=== PATIENT | male | born 1950 | race Caucasian/White ===

== ENCOUNTER 2017-05-04 20:59 | Emergency (ER) | payer MEDICARE ==
[~2017-05-04] VITALS: Ht 177.8 cm; Wt 59.0 kg
--- NOTE | 2017-05-04 21:15 | NUR ---
PT AMBULATORY TO ER BED 09. C/O MIDSTERNAL CHEST PAIN WORST UPON DEEP BREATHING. PT WAS SEEN AT [facility]. PT DENIES CHEST PAIN METALIZER. GOWNED AND PLACED ON MONITOR. NAD NOTED. AWAITING MD AUGUSTIN.
--- NOTE | 2017-05-04 21:51 | NUR ---
RADIOLOGY AT BEDSIDE FOR CHEST XRAY.
[2017-05-04 22:03] LABS: BASOPHILS % (AUTO) 0.1 % (0.0-2.0); EOSINOPHILS % (AUTO) 0.5 % (0.0-6.0); HEMATOCRIT 40 % (39-51); HEMOGLOBIN 13.4 g/dL (13.5-17.5); LYMPHOCYTES # (AUTO) 0.6 /CMM (0.8-4.8); LYMPHOCYTES % (AUTO) 6.4 % (20.0-44.0); MEAN CORPUSCULAR HEMOGLOBIN 33 PG (26.0-33.0); MEAN CORPUSCULAR HGB CONC 33 g/dl (31.0-36.0); MEAN CORPUSCULAR VOLUME 99 fL (80-96); MONOCYTES # (AUTO) 0.3 /CMM (0.1-1.30); MONOCYTES % (AUTO) 3.3 % (2.0-12.0); NEUTROPHILS # (AUTO) 8.4 /CMM (1.8-8.9); NEUTROPHILS % (AUTO) 89.7 % (43.0-81.0); PLATELET COUNT (AUTO) 165 /CMM (150-450); RDW COEFFICIENT OF VARIATION 13.4 (11.5-15.0); RED BLOOD CELL COUNT(AUTO) 4.11 MIL/uL (4.5-6.0); WHITE BLOOD COUNT (AUTO) 9.4 K/uL (4.3-11.0)
[2017-05-04 22:08] LABS: CALCIUM, SERUM 9.1 mg/dL (8.5-10.1); CARBON DIOXIDE 37 mmol/L (21-32); CHLORIDE 101 mmol/L (98-107); CREATININE 0.8 mg/dL (0.6-1.3); GLUCOSE 81 mg/dL (74-106); POTASSIUM 4.1 mmol/L (3.5-5.1); PROTHROMBIN TIME 10.4 SECS (9.5-12.7); SODIUM SERUM 137 mmol/L (136-145); UREA NITROGEN, BLOOD 17 mg/dL (7-18)
[2017-05-04 22:14] LABS: ALANINE AMINOTRANSFERASE 73 U/L (12-78); ALBUMIN 3.7 g/dL (3.4-5.0); ALKALINE PHOSPHATASE 52 U/L (46-116); ASPARTATE AMINOTRANSFERASE 48 U/L (15-37); BILIRUBIN,DIRECT 0.2 mg/dL (0.0-0.2); BILIRUBIN,TOTAL 0.4 mg/dL (0.2-1.0); TOTAL PROTEIN, SERUM 7.8 g/dL (6.4-8.2)
[2017-05-04 22:16] LABS: TROPONIN I < 0.017 ng/mL (0.00-0.056)
--- NOTE | 2017-05-04 22:21 | NUR ---
PT TO RADIOLOGY FOR CT PULMONARY ANGIO VIA [facility].
--- NOTE | 2017-05-04 22:39 | NUR ---
WAITING FOR GOOD IV LINE FOR CTA PULMONARY.
--- NOTE | 2017-05-04 23:44 | NUR ---
PT TO RADIOLOGY FOR CT PULMONARY ANGIO VIA [facility].
--- NOTE | 2017-05-05 01:37 | NUR ---
Patient discharged to home in stable condition. Written and verbal after care instructions given. Patient verbalizes understanding of instruction.IV removed. Catheter intact and site benign. Pressure and 4x4 applied to site. No bleeding noted.
[2017-05-05 01:38] VITALS: BP 134/74
== END 2017-05-05 01:39 | disposition home or self-care (01) ==
LOC: ER 21:00
DX: R07.89 Other chest pain (principal); F17.210 Nicotine dependence, cigarettes, uncomplicated; I49.3 Ventricular premature depolarization
CPT/HCPCS: 36415; 71010-TC; 80048-TC; 80076-TC; 84484-TC; 85025-TC; 85730-TC; A4606; J7030; Q9967; Z7610

== ENCOUNTER 2017-08-16 23:05 | Emergency (ER) | payer MEDICARE ==
[~2017-08-16] VITALS: Ht 170.2 cm; Wt 70.3 kg
[2017-08-16 23:20] VITALS: BP 138/72
== END 2017-08-17 02:23 | disposition home or self-care (01) ==
LOC: ER 23:08
DX: S63.511A Sprain of carpal joint of right wrist, initial encounter (principal); F17.200 Nicotine dependence, unspecified, uncomplicated; W01.0XXA Fall on same level from slipping, tripping and stumbling without subsequent striking against object, initial encounter; Y93.89 Activity, other specified; Y92.89 Other specified places as the place of occurrence of the external cause; Y99.8 Other external cause status
CPT/HCPCS: 29125; 73110; 99284; A4606; Z7610

== ENCOUNTER 2023-03-26 10:17 | Inpatient (IN) | payer MEDICARE ==
[~2023-03-26] VITALS: Ht 170.2 cm; Wt 61.7 kg
[2023-03-26] MEDS ORDERED: METH10TA2 PO (11:49)
[2023-03-26] MEDS ORDERED: IV NS 0.9% 1,000 ML BAG IV ONE (12:00)
[2023-03-26 12:36] LABS: BASOPHILS % (AUTO) 0.2 % (0.0-2.0); EOSINOPHILS % (AUTO) 0.2 % (0.0-6.0); HEMATOCRIT 38 % (39-51); HEMOGLOBIN 12.9 g/dL (13.5-17.5); LYMPHOCYTES # (AUTO) 0.9 K/uL (0.8-4.8); LYMPHOCYTES % (AUTO) 5.5 % (20.0-44.0); MEAN CORPUSCULAR HEMOGLOBIN 32 PG (26.0-33.0); MEAN CORPUSCULAR HGB CONC 34 g/dl (31.0-36.0); MEAN CORPUSCULAR VOLUME 96 fL (80-96); MONOCYTES # (AUTO) 0.9 K/uL (0.1-1.30); MONOCYTES % (AUTO) 6.1 % (2.0-12.0); NEUTROPHILS # (AUTO) 13.8 K/uL (1.8-8.9); PLATELET COUNT (AUTO) 482 K/uL (150-450); RED CELL DISTRIBUTION WIDTH 13.2 % (11.5-15.0); WHITE BLOOD COUNT (AUTO) 15.6 K/uL (4.3-11.0)
[2023-03-26 13:04] LABS: CALCIUM, SERUM 9.4 mg/dL (8.5-10.1); CARBON DIOXIDE 29 mmol/L (21-32); CHLORIDE 105 mmol/L (98-107); CREATININE 1.2 mg/dL (0.6-1.3); GLUCOSE 82 mg/dL (74-106); POTASSIUM 3.2 mmol/L (3.5-5.1); SODIUM SERUM 141 mmol/L (136-145); UREA NITROGEN, BLOOD 47 mg/dL (7-18)
[2023-03-26 13:06] LABS: MAGNESIUM 2.3 mg/dL (1.8-2.4); PHOSPHORUS 3.4 mg/dL (2.5-4.9)
[2023-03-26 13:16] LABS: ALANINE AMINOTRANSFERASE 51 U/L (12-78); ALBUMIN 2.7 g/dL (3.4-5.0); ALKALINE PHOSPHATASE 48 U/L (46-116); ASPARTATE AMINOTRANSFERASE 56 U/L (15-37); BILIRUBIN,DIRECT 0.6 mg/dL (0.0-0.2); LIPASE 47 U/L (73-393); TOTAL PROTEIN, SERUM 7.3 g/dL (6.4-8.2)
[2023-03-26 13:40] LABS: LACTIC ACID 1.5 mmol/L (0.4-2.0)
[2023-03-26 13:48] LABS: ACETAMINOPHEN 0 ug/ml (10-30); ALCOHOL, BLOOD < 3 mg/dL (0-10); SALICYLATE 3.7 mg/dL (2.8-20.0)
[2023-03-26 14:13] LABS: APPEARANCE,URINE CLEAR (CLEAR); BILIRUBIN,URINE 2+ (NEGATIVE); BLOOD, URINE NEGATIVE Ery/uL (NEGATIVE); COLOR,URINE ORANGE (YELLOW); KETONES,URINE 2+ mg/dL (NEGATIVE); LEUKOCYTE ESTERASE ,URINE NEGATIVE (NEGATIVE); NITRITE, URINE NEGATIVE (NEGATIVE); PROTEIN,URINE 1+ mg/dl (NEGATIVE); UGLUCOSE NEGATIVE (NEGATIVE)
[2023-03-26 14:17] LABS: AMPHETAMINE, URINE NEGATIVE (NEGATIVE); BARBITURATE, URINE NEGATIVE (NEGATIVE); BENZODIAZEPINE, URINE POSITIVE (NEGATIVE); CANNABINOID, URINE NEGATIVE (NEGATIVE); COCCAINE, URINE NEGATIVE (NEGATIVE); OPIATE, URINE NEGATIVE (NEGATIVE); PHENCYCLIDINE SCREEN,URINE NEGATIVE (NEGATIVE)
[2023-03-26] MEDS ORDERED: AZITHROMYCIN 500 MG in IV D5W 250 ML IV ONE (14:30)
[2023-03-26] MEDS ORDERED: CEFTRIAXONE 1GM BAG (ER ONLY) 1 GM/50 ML PIGGYBACK IV ONE (14:30)
[2023-03-26] MEDS ORDERED: POTASSIUM CHLORIDE 20 MEQ TAB.PRT.SR PO ONE ×2 (14:30→16:32)
[2023-03-26] MEDS ORDERED: DOXY100T2 PO (14:45)
[2023-03-26 15:17] LABS: ADD URINE CULTURE NO; BACTERIA,URINE None seen /HPF (None Seen); HYALINE CASTS, URINE Few /LPF (None Seen); RBC,URINE 0-2 /HPF (0-2); SQUAMOUS EPITHELIAL CELL,UR None Seen /HPF (None Seen); WBC,URINE 0-2 /HPF (0-3)
[2023-03-26 15:18] LABS: URIC ACID CRYSTALS,URINE Rare /HPF (None Seen)
[2023-03-26] MEDS ORDERED: CEFTRIAXONE 1GM BAG (ER ONLY) 50 ML IV ONE (16:13)
[2023-03-26] MEDS ORDERED: ACETAMINOPHEN 325 MG TABLET PO PRN (17:30)
[2023-03-26] MEDS ORDERED: Z GUARD REMEDY 4 OZ OINT TP PRN (17:30)
[2023-03-26] MEDS ORDERED: MAG HYDROX/AL HYDROX/SIMETH 30 ML UDC PO PRN (17:30)
[2023-03-26] MEDS ORDERED: ONDANSETRON HCL/PF 4 MG/2 ML VIAL IVP PRN (17:30)
[2023-03-26] MEDS ORDERED: MAGNESIUM HYDROXIDE 30 ML UDC PO PRN (17:30)
[2023-03-26 21:00] VITALS: BP 144/90; TEMP 98.5; O2SAT 92
[2023-03-26] MEDS: ENOXAPARIN SODIUM 40 MG/0.4 ML DISP.SYRIN SQ SCH (21:30)
[2023-03-26] MEDS: ZOLPIDEM TARTRATE 5 MG TABLET PO PRN (22:19)
[2023-03-26] MEDS: IV NS 0.9% 1,000 ML IV PRN (22:29)
[2023-03-27] VITALS (9 sets, daily range): BP systolic 134–147; BP diastolic 84–89; TEMP 98.4–98.5; O2SAT 96–99
[2023-03-27 07:41] LABS: BASOPHILS % (AUTO) 0.3 % (0.0-2.0); EOSINOPHILS # (AUTO) 0.1 K/uL (0.0-0.7); EOSINOPHILS % (AUTO) 0.7 % (0.0-6.0); HEMATOCRIT 36 % (39-51); HEMOGLOBIN 12.2 g/dL (13.5-17.5); MEAN CORPUSCULAR HEMOGLOBIN 33 PG (26.0-33.0); MEAN CORPUSCULAR HGB CONC 33 g/dl (31.0-36.0); MEAN CORPUSCULAR VOLUME 98 fL (80-96); MONOCYTES # (AUTO) 0.7 K/uL (0.1-1.30); MONOCYTES % (AUTO) 7.1 % (2.0-12.0); NEUTROPHILS # (AUTO) 7.8 K/uL (1.8-8.9); NEUTROPHILS % (AUTO) 81.9 % (43.0-81.0); PLATELET COUNT (AUTO) 418 K/uL (150-450); RED BLOOD CELL COUNT(AUTO) 3.71 MIL/uL (4.5-6.0); RED CELL DISTRIBUTION WIDTH 13.6 % (11.5-15.0); WHITE BLOOD COUNT (AUTO) 9.6 K/uL (4.3-11.0)
[2023-03-27 07:47] LABS: CALCIUM, SERUM 8.4 mg/dL (8.5-10.1); CARBON DIOXIDE 24 mmol/L (21-32); CHLORIDE 108 mmol/L (98-107); CREATININE 0.8 mg/dL (0.6-1.3); GLUCOSE 77 mg/dL (74-106); MAGNESIUM 1.9 mg/dL (1.8-2.4); PHOSPHORUS 3.5 mg/dL (2.5-4.9); POTASSIUM 3.4 mmol/L (3.5-5.1); SODIUM SERUM 142 mmol/L (136-145); UREA NITROGEN, BLOOD 26 mg/dL (7-18)
[2023-03-27] MEDS: METHADONE HCL 10 MG TABLET PO SCH (09:47)
[2023-03-27] MEDS: IPRATROPIUM NEB FS 0.5 MG/2.5 ML AMPUL.NEB NEB SCH ×3 (09:55→20:27)
[2023-03-27] MEDS ORDERED: POTASSIUM CHLORIDE 20 MEQ TAB.PRT.SR PO SCH (10:30)
[2023-03-27] MEDS: DAKINS QUARTER STRENGTH (0.125%) 480 ML BOTTLE TOP SCH (10:54)
[2023-03-27] MEDS: THERAHONEY GEL 1.5 OZ TUBE TP SCH (10:55)
[2023-03-27] MEDS: IV NS 0.9% 1,000 ML IV PRN (12:58)
[2023-03-27] MEDS: AZITHROMYCIN 500 MG in IV D5W 250 ML IV SCH (15:11)
[2023-03-27] MEDS: CEFTRIAXONE 1 G in IV D5W 50 ML IV SCH (16:58)
[2023-03-27] MEDS: ENOXAPARIN SODIUM 40 MG/0.4 ML DISP.SYRIN SQ SCH (20:44)
[2023-03-27] MEDS: ZOLPIDEM TARTRATE 5 MG TABLET PO PRN (21:55)
[2023-03-28] VITALS (9 sets, daily range): BP systolic 125–135; BP diastolic 82–91; TEMP 98.3–98.6; O2SAT 93–98
[2023-03-28] MEDS: IPRATROPIUM NEB FS 0.5 MG/2.5 ML AMPUL.NEB NEB SCH ×4 (01:30→20:25)
[2023-03-28] MEDS: IV NS 0.9% 1,000 ML IV PRN (05:46)
[2023-03-28 06:32] LABS: BASOPHILS % (AUTO) 0.5 % (0.0-2.0); EOSINOPHILS # (AUTO) 0.3 K/uL (0.0-0.7); EOSINOPHILS % (AUTO) 3.4 % (0.0-6.0); HEMATOCRIT 35 % (39-51); HEMOGLOBIN 11.6 g/dL (13.5-17.5); LYMPHOCYTES # (AUTO) 1.1 K/uL (0.8-4.8); LYMPHOCYTES % (AUTO) 13.6 % (20.0-44.0); MEAN CORPUSCULAR HEMOGLOBIN 33 PG (26.0-33.0); MEAN CORPUSCULAR HGB CONC 34 g/dl (31.0-36.0); MEAN CORPUSCULAR VOLUME 98 fL (80-96); MONOCYTES # (AUTO) 0.7 K/uL (0.1-1.30); MONOCYTES % (AUTO) 8.5 % (2.0-12.0); NEUTROPHILS # (AUTO) 6.1 K/uL (1.8-8.9); PLATELET COUNT (AUTO) 254 K/uL (150-450); RED BLOOD CELL COUNT(AUTO) 3.56 MIL/uL (4.5-6.0); RED CELL DISTRIBUTION WIDTH 13.2 % (11.5-15.0); WHITE BLOOD COUNT (AUTO) 8.2 K/uL (4.3-11.0)
[2023-03-28 07:46] LABS: CALCIUM, SERUM 8.3 mg/dL (8.5-10.1); CREATININE 0.7 mg/dL (0.6-1.3); POTASSIUM 3.8 mmol/L (3.5-5.1)
[2023-03-28] MEDS: METHADONE HCL 10 MG TABLET PO SCH (09:23)
[2023-03-28] MEDS: DAKINS QUARTER STRENGTH (0.125%) 480 ML BOTTLE TOP SCH (09:24)
[2023-03-28] MEDS: THERAHONEY GEL 1.5 OZ TUBE TP SCH (09:24)
[2023-03-28] MEDS ORDERED: MENTHOL/CETYLPYRD (CEPACOL) 1 LOZ LOZENGE PO PRN (10:30)
[2023-03-28] MEDS: GUAIFENESIN/CODEINE 10 ML UDC PO PRN ×3 (12:31→22:01)
[2023-03-28] MEDS: AZITHROMYCIN 500 MG in IV D5W 250 ML IV SCH (15:13)
[2023-03-28] MEDS: CEFTRIAXONE 1 G in IV D5W 50 ML IV SCH (16:31)
[2023-03-28] MEDS: PROSOURCE / PROSTAT (PYXIS) 30 ML UDC PO SCH (17:28)
[2023-03-28] MEDS: ENSURE ENLIVE CHOC 237 ML CAN PO SCH (17:28)
[2023-03-28] MEDS: ENOXAPARIN SODIUM 40 MG/0.4 ML DISP.SYRIN SQ SCH (22:04)
[2023-03-29] VITALS (9 sets, daily range): BP systolic 104; BP diastolic 85; TEMP 98.5; O2SAT 94–98
[2023-03-29] MEDS: ZOLPIDEM TARTRATE 5 MG TABLET PO PRN ×2 (01:03→23:24)
[2023-03-29] MEDS: IPRATROPIUM NEB FS 0.5 MG/2.5 ML AMPUL.NEB NEB SCH ×4 (01:09→20:18)
[2023-03-29 06:58] LABS: BASOPHILS # (AUTO) 0.1 K/uL (0.0-0.2); EOSINOPHILS # (AUTO) 0.1 K/uL (0.0-0.7); EOSINOPHILS % (AUTO) 2.1 % (0.0-6.0); HEMATOCRIT 34 % (39-51); HEMOGLOBIN 11.6 g/dL (13.5-17.5); LYMPHOCYTES # (AUTO) 1.3 K/uL (0.8-4.8); LYMPHOCYTES % (AUTO) 18.4 % (20.0-44.0); MEAN CORPUSCULAR HEMOGLOBIN 33 PG (26.0-33.0); MEAN CORPUSCULAR HGB CONC 34 g/dl (31.0-36.0); MEAN CORPUSCULAR VOLUME 96 fL (80-96); MONOCYTES # (AUTO) 0.7 K/uL (0.1-1.30); MONOCYTES % (AUTO) 10.3 % (2.0-12.0); NEUTROPHILS # (AUTO) 4.7 K/uL (1.8-8.9); NEUTROPHILS % (AUTO) 68.2 % (43.0-81.0); PLATELET COUNT (AUTO) 362 K/uL (150-450); RED BLOOD CELL COUNT(AUTO) 3.56 MIL/uL (4.5-6.0); RED CELL DISTRIBUTION WIDTH 12.9 % (11.5-15.0); WHITE BLOOD COUNT (AUTO) 6.9 K/uL (4.3-11.0)
[2023-03-29 07:14] LABS: CALCIUM, SERUM 8.3 mg/dL (8.5-10.1); CREATININE 0.6 mg/dL (0.6-1.3)
[2023-03-29] MEDS: ENSURE ENLIVE CHOC 237 ML CAN PO SCH ×2 (07:44→17:29)
[2023-03-29] MEDS: METHADONE HCL 10 MG TABLET PO SCH (08:29)
[2023-03-29] MEDS: ZINC SULFATE 220 MG CAPSULE PO SCH (08:29)
[2023-03-29] MEDS: MULTIVITAMINS,THERAGRAN 1 UDTAB TABLET PO SCH (08:30)
[2023-03-29] MEDS: ASCORBIC ACID 500 MG TABLET PO SCH (08:30)
[2023-03-29] MEDS: PROSOURCE / PROSTAT (PYXIS) 30 ML UDC PO SCH ×2 (09:43→17:29)
[2023-03-29] MEDS: DAKINS QUARTER STRENGTH (0.125%) 480 ML BOTTLE TOP SCH (09:43)
[2023-03-29] MEDS: THERAHONEY GEL 1.5 OZ TUBE TP SCH (09:44)
[2023-03-29] MEDS: AZITHROMYCIN 250 MG TABLET PO SCH (15:54)
[2023-03-29] MEDS: CEFTRIAXONE 1 G in IV D5W 50 ML IV SCH (16:33)
[2023-03-29] MEDS: ENOXAPARIN SODIUM 40 MG/0.4 ML DISP.SYRIN SQ SCH (21:46)
[2023-03-30] VITALS (7 sets, daily range): O2SAT 93–100
[2023-03-30] MEDS: IPRATROPIUM NEB FS 0.5 MG/2.5 ML AMPUL.NEB NEB SCH ×4 (01:30→19:18)
[2023-03-30 06:32] LABS: BASOPHILS # (AUTO) 0.1 K/uL (0.0-0.2); BASOPHILS % (AUTO) 1.1 % (0.0-2.0); EOSINOPHILS # (AUTO) 0.1 K/uL (0.0-0.7); EOSINOPHILS % (AUTO) 1.6 % (0.0-6.0); HEMATOCRIT 38 % (39-51); HEMOGLOBIN 12.7 g/dL (13.5-17.5); LYMPHOCYTES # (AUTO) 1.2 K/uL (0.8-4.8); LYMPHOCYTES % (AUTO) 19.7 % (20.0-44.0); MEAN CORPUSCULAR HEMOGLOBIN 33 PG (26.0-33.0); MEAN CORPUSCULAR HGB CONC 33 g/dl (31.0-36.0); MEAN CORPUSCULAR VOLUME 99 fL (80-96); MONOCYTES # (AUTO) 0.6 K/uL (0.1-1.30); MONOCYTES % (AUTO) 10.3 % (2.0-12.0); NEUTROPHILS # (AUTO) 4.1 K/uL (1.8-8.9); NEUTROPHILS % (AUTO) 67.3 % (43.0-81.0); PLATELET COUNT (AUTO) 340 K/uL (150-450); RED CELL DISTRIBUTION WIDTH 13.4 % (11.5-15.0); WHITE BLOOD COUNT (AUTO) 6.1 K/uL (4.3-11.0)
[2023-03-30 06:54] LABS: CREATININE 0.6 mg/dL (0.6-1.3); POTASSIUM 4.6 mmol/L (3.5-5.1)
[2023-03-30] MEDS: ENSURE ENLIVE CHOC 237 ML CAN PO SCH ×2 (08:19→16:32)
[2023-03-30] MEDS: METHADONE HCL 10 MG TABLET PO SCH (08:21)
[2023-03-30] MEDS: MULTIVITAMINS,THERAGRAN 1 UDTAB TABLET PO SCH (08:22)
[2023-03-30] MEDS: DAKINS QUARTER STRENGTH (0.125%) 480 ML BOTTLE TOP SCH (08:22)
[2023-03-30] MEDS: THERAHONEY GEL 1.5 OZ TUBE TP SCH (08:22)
[2023-03-30] MEDS: ZINC SULFATE 220 MG CAPSULE PO SCH ×2 (08:22→09:00)
[2023-03-30] MEDS: ASCORBIC ACID 500 MG TABLET PO SCH ×2 (08:22→09:00)
[2023-03-30] MEDS: PROSOURCE / PROSTAT (PYXIS) 30 ML UDC PO SCH ×2 (08:23→16:33)
[2023-03-30] MEDS ORDERED: GUAI10SY3 PO (09:25)
[2023-03-30] MEDS ORDERED: AZIT250T PO (09:25)
[2023-03-30] MEDS: AZITHROMYCIN 250 MG TABLET PO SCH (15:05)
[2023-03-30] MEDS: CEFTRIAXONE 1 G in IV D5W 50 ML IV SCH (15:05)
[2023-03-31] MEDS ORDERED: LACT-246 PO (00:42)
[2023-03-31] MEDS ORDERED: BENZ1LOZ58 MM (00:42)
[2023-03-31] MEDS ORDERED: IPRA0.2S49 IH (00:42)
[2023-03-31] MEDS ORDERED: MULT-754 PO (00:42)
[2023-03-31] MEDS ORDERED: IPRA0.2S9 IH (07:36)
[2023-03-31] MEDS ORDERED: ZOLP5TAB8 PO (07:36)
[2023-03-31] MEDS ORDERED: ACET-868 PO (07:36)
[2023-03-31] MEDS ORDERED: HONE44PA TP (07:36)
[2023-03-31] MEDS ORDERED: AMIN30LI2 PO (07:36)
[2023-03-31] MEDS ORDERED: SODI473S8 TOP (07:36)
[2023-03-31] MEDS ORDERED: MAGN400O6 PO (07:36)
[2023-03-31] MEDS ORDERED: ALLA266C2 TP (07:36)
[2023-03-31] MEDS ORDERED: ASCO-352 PO (07:36)
[2023-03-31] MEDS ORDERED: MAG30ORA PO (07:36)
[2023-03-31] MEDS ORDERED: ONDA4TAB5 PO (07:36)
[2023-03-31] MEDS ORDERED: ENOX40DI SQ (07:36)
[2023-03-31] MEDS ORDERED: ZINC220C6 PO (07:36)
== END 2023-03-30 20:37 | DRG 193 ==
LOC: ER 10:20 → TELE 19:32 → MED 21:52
PROVIDERS: ADMIT Internal Medicine; ATTEND Internal Medicine
PROC: 05H533Z Insertion of Infusion Device into Right Subclavian Vein, Percutaneous Approach (ICD-10-PCS; principal; 2023-03-26)
PROC: B546ZZA Ultrasonography of Right Subclavian Vein, Guidance (ICD-10-PCS; 2023-03-26)
DX: J15.9 Unspecified bacterial pneumonia (principal); E43 Unspecified severe protein-calorie malnutrition; N17.0 Acute kidney failure with tubular necrosis; G93.41 Metabolic encephalopathy; J96.01 Acute respiratory failure with hypoxia; F03.92 Unspecified dementia, unspecified severity, with psychotic disturbance; J90 Pleural effusion, not elsewhere classified; J44.0 Chronic obstructive pulmonary disease with (acute) lower respiratory infection; F33.3 Major depressive disorder, recurrent, severe with psychotic symptoms; F03.93 Unspecified dementia, unspecified severity, with mood disturbance; E86.0 Dehydration; E87.6 Hypokalemia; E88.09 Other disorders of plasma-protein metabolism, not elsewhere classified; G89.29 Other chronic pain; Z20.822 Contact with and (suspected) exposure to COVID-19; Z68.21 Body mass index [BMI] 21.0-21.9, adult; Z73.6 Limitation of activities due to disability; F11.10 Opioid abuse, uncomplicated; F17.210 Nicotine dependence, cigarettes, uncomplicated; S50.312A Abrasion of left elbow, initial encounter; S50.311A Abrasion of right elbow, initial encounter; X58.XXXA Exposure to other specified factors, initial encounter; Y93.9 Activity, unspecified; L89.156 Pressure-induced deep tissue damage of sacral region; F29 Unspecified psychosis not due to a substance or known physiological condition; R91.1 Solitary pulmonary nodule; G47.00 Insomnia, unspecified; S20.419A Abrasion of unspecified back wall of thorax, initial encounter; Y92.009 Unspecified place in unspecified non-institutional (private) residence as the place of occurrence of the external cause
CPT/HCPCS: 36415; 71045-TC; 71250-TC; 80048-TC; 80076-TC; 81001; 83605-TC; 83690-TC; 83735-TC; 84100-TC; 84484-TC; 85025-TC; 86480; 87040-TC; 87086-TC; 94799-TC; 97112-TC; 97116-TC; 97530-TC; A4223; A6253; A6403; C9803; G0378; G0480; J0456; J0696; J1650; J7030; J7060

== ENCOUNTER 2023-03-30 21:00 | Inpatient (IN) | payer MEDICARE ==
[~2023-03-30] VITALS: Ht 170.2 cm; Wt 68.0 kg
[~2023-03-30 21:00] MED LIST: AZIT250T PO; DOXY100T2 PO; GUAI10SY3 PO; METH10TA2 PO
[2023-03-30 22:00] VITALS: BP 140/87; TEMP 98.8; O2SAT 93
[2023-03-30 22:57] VITALS: BP 140/87; TEMP 98.8; O2SAT 0
[2023-03-30] MEDS ORDERED: ACETAMINOPHEN 325 MG TABLET PO PRN (23:00)
[2023-03-30] MEDS ORDERED: BLOOD SUGAR DIAGNOSTIC 1 EACH STRIP IN ONE (23:00)
[2023-03-30] MEDS ORDERED: MAGNESIUM HYDROXIDE 30 ML UDC PO PRN (23:00)
[2023-03-30] MEDS ORDERED: MAG HYDROX/AL HYDROX/SIMETH 30 ML UDC PO PRN (23:00)
[2023-03-30] MEDS ORDERED: clonazePAM 0.5 MG TABLET PO PRN (23:00)
[2023-03-31] VITALS (7 sets, daily range): BP systolic 138–162; BP diastolic 66–92; TEMP 97.7–98.1; O2SAT 93–99
[2023-03-31] MEDS ORDERED: IPRA0.2S49 IH (00:42)
[2023-03-31] MEDS ORDERED: MULT-754 PO (00:42)
[2023-03-31] MEDS ORDERED: BENZ1LOZ58 MM (00:42)
[2023-03-31] MEDS ORDERED: LACT-246 PO (00:42)
[2023-03-31] MEDS: TEMAZEPAM 7.5 MG CAPSULE PO PRN (01:17)
[2023-03-31 06:49] LABS: ALBUMIN 2.4 g/dL (3.4-5.0); BILIRUBIN,TOTAL 0.4 mg/dL (0.2-1.0); CALCIUM, SERUM 8.9 mg/dL (8.5-10.1); CREATININE 0.7 mg/dL (0.6-1.3); POTASSIUM 4.3 mmol/L (3.5-5.1)
[2023-03-31 06:54] LABS: CHOLESTEROL 116 mg/dL (<200); HDL CHOLESTEROL 35 mg/dL (40-60); LDL 69 mg/dL (0-99); TRIGLYCERIDES 55 mg/dL (30-150)
[2023-03-31] MEDS ORDERED: MAGN400O6 PO (07:36)
[2023-03-31] MEDS ORDERED: ASCO-352 PO (07:36)
[2023-03-31] MEDS ORDERED: AMIN30LI2 PO (07:36)
[2023-03-31] MEDS ORDERED: ALLA266C2 TP (07:36)
[2023-03-31] MEDS ORDERED: ENOX40DI SQ (07:36)
[2023-03-31] MEDS ORDERED: ZOLP5TAB8 PO (07:36)
[2023-03-31] MEDS ORDERED: HONE44PA TP (07:36)
[2023-03-31] MEDS ORDERED: ONDA4TAB5 PO (07:36)
[2023-03-31] MEDS ORDERED: ACET-868 PO (07:36)
[2023-03-31] MEDS ORDERED: MAG30ORA PO (07:36)
[2023-03-31] MEDS ORDERED: IPRA0.2S9 IH (07:36)
[2023-03-31] MEDS ORDERED: ZINC220C6 PO (07:36)
[2023-03-31] MEDS ORDERED: SODI473S8 TOP (07:36)
[2023-03-31] MEDS: Z GUARD REMEDY 4 OZ OINT TP PRN (09:09)
[2023-03-31] MEDS: Z GUARD REMEDY 4 OZ OINT TP SCH (09:10)
[2023-03-31] MEDS ORDERED: GUAIFENESIN/CODEINE 10 ML UDC PO PRN (10:30)
[2023-03-31] MEDS ORDERED: ACETAMINOPHEN 325 MG TABLET PO PRN (10:30)
[2023-03-31] MEDS ORDERED: MAG HYDROX/AL HYDROX/SIMETH 30 ML UDC PO PRN (10:30)
[2023-03-31] MEDS ORDERED: MAGNESIUM HYDROXIDE 30 ML UDC PO PRN (10:30)
[2023-03-31] MEDS: AZITHROMYCIN 250 MG TABLET PO SCH (10:52)
[2023-03-31] MEDS ORDERED: MENTHOL/CETYLPYRD (CEPACOL) 1 LOZ LOZENGE PO PRN (11:00)
[2023-03-31] MEDS ORDERED: ONDANSETRON 4 MG TAB.RAPDIS PO PRN (11:00)
[2023-03-31] MEDS: SERTRALINE HCL 25 MG TABLET PO SCH (13:58)
[2023-03-31] MEDS: IPRATROPIUM NEB FS 0.5 MG/2.5 ML AMPUL.NEB IH SCH ×2 (15:58→20:18)
[2023-03-31] MEDS: ENSURE ENLIVE 237 ML LIQUID (VANILLA) PO SCH (17:15)
[2023-03-31] MEDS ORDERED: METHADONE HCL 10 MG TABLET PO SCH (20:00)
[2023-04-01] MEDS: IPRATROPIUM NEB FS 0.5 MG/2.5 ML AMPUL.NEB IH SCH ×4 (02:30→20:12)
[2023-04-01 08:00] VITALS: BP 156/94; TEMP 98; O2SAT 98
[2023-04-01] MEDS: MULTIVITAMINS,THERAGRAN 1 UDTAB TABLET PO SCH (08:23)
[2023-04-01] MEDS: ENSURE ENLIVE 237 ML LIQUID (VANILLA) PO SCH ×2 (08:23→17:12)
[2023-04-01] MEDS: Z GUARD REMEDY 4 OZ OINT TP PRN (08:31)
[2023-04-01] MEDS: Z GUARD REMEDY 4 OZ OINT TP SCH (08:32)
[2023-04-01] MEDS ORDERED: METHADONE HCL 10 MG TABLET PO SCH (09:00)
[2023-04-01] MEDS: METHADONE HCL 10 MG TABLET PO SCH (11:28)
[2023-04-01] MEDS: AZITHROMYCIN 250 MG TABLET PO SCH (12:06)
[2023-04-01] MEDS: SERTRALINE HCL 25 MG TABLET PO SCH (13:12)
[2023-04-01 16:00] VITALS: BP 156/77; TEMP 97.9; O2SAT 94
[2023-04-01 20:10] VITALS: O2SAT 98
[2023-04-01 20:21] VITALS: O2SAT 99
[2023-04-01 21:17] VITALS: BP 165/95; TEMP 98.1; O2SAT 96
[2023-04-01] MEDS: TEMAZEPAM 7.5 MG CAPSULE PO PRN (23:19)
[2023-04-02] MEDS: IPRATROPIUM NEB FS 0.5 MG/2.5 ML AMPUL.NEB IH SCH ×4 (01:30→20:24)
[2023-04-02 07:43] VITALS: O2SAT 98
[2023-04-02 08:00] VITALS: BP 154/89; TEMP 98.7; O2SAT 96; O2SAT 99
[2023-04-02] MEDS: METHADONE HCL 10 MG TABLET PO SCH ×2 (09:09→10:09)
[2023-04-02] MEDS: MULTIVITAMINS,THERAGRAN 1 UDTAB TABLET PO SCH (09:09)
[2023-04-02] MEDS: ENSURE ENLIVE 237 ML LIQUID (VANILLA) PO SCH ×2 (09:18→17:53)
[2023-04-02] MEDS: Z GUARD REMEDY 4 OZ OINT TP SCH (09:19)
[2023-04-02] MEDS: AZITHROMYCIN 250 MG TABLET PO SCH (11:06)
[2023-04-02] MEDS: SERTRALINE HCL 25 MG TABLET PO SCH (13:07)
[2023-04-02 16:00] VITALS: BP 144/90; TEMP 98.1; O2SAT 96
[2023-04-02 20:25] VITALS: O2SAT 95
[2023-04-02 20:32] VITALS: BP 148/94; TEMP 98; O2SAT 95
[2023-04-02] MEDS: TEMAZEPAM 7.5 MG CAPSULE PO PRN (23:07)
[2023-04-03] VITALS (7 sets, daily range): BP systolic 141–149; BP diastolic 78–94; TEMP 97.9–98.7; O2SAT 93–99
[2023-04-03] MEDS: IPRATROPIUM NEB FS 0.5 MG/2.5 ML AMPUL.NEB IH SCH ×5 (01:30→19:51)
[2023-04-03] MEDS: MULTIVITAMINS,THERAGRAN 1 UDTAB TABLET PO SCH (08:16)
[2023-04-03] MEDS: METHADONE HCL 10 MG TABLET PO SCH (08:28)
[2023-04-03] MEDS: ENSURE ENLIVE 237 ML LIQUID (VANILLA) PO SCH ×4 (08:29→16:14)
[2023-04-03] MEDS: Z GUARD REMEDY 4 OZ OINT TP SCH (08:29)
[2023-04-03] MEDS: Z GUARD REMEDY 4 OZ OINT TP PRN (08:29)
[2023-04-03] MEDS: AZITHROMYCIN 250 MG TABLET PO SCH (11:27)
[2023-04-03] MEDS: SERTRALINE HCL 25 MG TABLET PO SCH (13:36)
[2023-04-04] MEDS: TEMAZEPAM 7.5 MG CAPSULE PO PRN (01:44)
[2023-04-04] MEDS: IPRATROPIUM NEB FS 0.5 MG/2.5 ML AMPUL.NEB IH SCH ×3 (02:30→13:30)
[2023-04-04 08:00] VITALS: BP 132/89; TEMP 97.8; O2SAT 94
[2023-04-04 08:06] VITALS: O2SAT 93
[2023-04-04] MEDS: ENSURE ENLIVE 237 ML LIQUID (VANILLA) PO SCH ×3 (09:00→12:44)
[2023-04-04] MEDS: MULTIVITAMINS,THERAGRAN 1 UDTAB TABLET PO SCH (09:01)
[2023-04-04] MEDS: Z GUARD REMEDY 4 OZ OINT TP SCH (09:01)
[2023-04-04] MEDS: METHADONE HCL 10 MG TABLET PO SCH (09:01)
[2023-04-04] MEDS: AZITHROMYCIN 250 MG TABLET PO SCH (11:04)
[2023-04-04] MEDS: SERTRALINE HCL 25 MG TABLET PO SCH (12:44)
== END 2023-04-04 13:35 | disposition home or self-care (01) | DRG 885 ==
LOC: GPS 21:00
PROVIDERS: ADMIT Psychiatry & Neurology Psychosomatic Medicine; ATTEND Internal Medicine
DX: F33.2 Major depressive disorder, recurrent severe without psychotic features (principal); E43 Unspecified severe protein-calorie malnutrition; N17.0 Acute kidney failure with tubular necrosis; G93.41 Metabolic encephalopathy; F03.94 Unspecified dementia, unspecified severity, with anxiety; F03.93 Unspecified dementia, unspecified severity, with mood disturbance; F03.918 Unspecified dementia, unspecified severity, with other behavioral disturbance; F03.92 Unspecified dementia, unspecified severity, with psychotic disturbance; F41.9 Anxiety disorder, unspecified; R62.7 Adult failure to thrive; F11.10 Opioid abuse, uncomplicated; S50.312A Abrasion of left elbow, initial encounter; S50.311A Abrasion of right elbow, initial encounter; S30.810A Abrasion of lower back and pelvis, initial encounter; X58.XXXA Exposure to other specified factors, initial encounter; Y92.9 Unspecified place or not applicable; L89.216 Pressure-induced deep tissue damage of right hip; E87.6 Hypokalemia; Z73.6 Limitation of activities due to disability; R53.1 Weakness; R27.8 Other lack of coordination; Z91.81 History of falling; E88.09 Other disorders of plasma-protein metabolism, not elsewhere classified; G47.00 Insomnia, unspecified; Z79.01 Long term (current) use of anticoagulants; Z79.51 Long term (current) use of inhaled steroids; Z79.899 Other long term (current) drug therapy; S80.811A Abrasion, right lower leg, initial encounter; R26.2 Difficulty in walking, not elsewhere classified
CPT/HCPCS: 36415; 80048-TC; 80053-TC; 80061-TC; 87081-TC; 94799-TC; 97116-TC